=== PATIENT | female | born 1995 | race Caucasian/White ===

== ENCOUNTER 2023-08-07 09:34 | Inpatient (IN) | payer BC ==
[2023-08-07 09:47] VITALS: BMI 29.3
[2023-08-07] MEDS ORDERED: Misoprostol 200 MCG TAB PR PRN (10:00)
[2023-08-07] MEDS ORDERED: hydrALAZINE 20 MG/ML VIAL SLOW IVP PRN (10:00)
[2023-08-07] MEDS ORDERED: Lidocaine 1% (PF) 30 ML VIAL SC PRN (10:00)
[2023-08-07] MEDS ORDERED: Ibuprofen 800 MG TAB PO PRN (10:00)
[2023-08-07] MEDS ORDERED: fentaNYL 50 mcg/mL 1 mL Vial SLOW IVP PRN (10:00)
[2023-08-07] MEDS ORDERED: Promethazine HCl 25 MG/ML VIAL IM PRN (10:00)
[2023-08-07] MEDS ORDERED: Lactated Ringer's 1,000 ML IV PRN (10:00)
[2023-08-07] MEDS ORDERED: Oxytocin 30 units/NS 500 ML 500 ML IV SCH (10:00)
[2023-08-07] MEDS ORDERED: Ondansetron PF 4 MG/2 ML Vial IVP PRN (10:00)
[2023-08-07] MEDS ORDERED: HYDROcodone/Acetaminophen 5/325 mg Tablet PO PRN ×2 (10:00)
[2023-08-07 11:06] LABS: Hematocrit 37.5 % (34.9-44.5); Mean Corpuscular HGB CONC 34.7 g/dL (32.0-36.0); Mean Corpuscular Hemoglobin 27.3 pg (27.0-33.0); Mean Corpuscular Volume 78.6 fl (81.6-98.3); Mean Platelet Volume 14.4 fl (7.4-10.4); Platelet Count 190 10x3/uL (150-450); RBC Distribution Width 13.6 % (11.5-14.5); Red Blood Cell (RBC) Count 4.77 10x6/uL (3.90-5.03)
[2023-08-07 11:37] LABS: HBSAg Index 0.17 S/CO (0-0.99); Hep B Surf Ag - L&D Non-Reactive S/CO (NonReactive); Syphilis Antibody Nonreactive (Nonreactive); Syphilis Antibody Index 0.12 S/CO (<1.00 Non-Reactive)
[2023-08-07] MEDS ORDERED: fentaNYL/Ropivacaine Epidural 100 ML ONE (18:17)
[2023-08-07] MEDS ORDERED: Methylergonovine 0.2 MG/ML VIAL ONE (22:03)
[2023-08-07] MEDS ORDERED: Misoprostol 200 MCG TAB ONE (22:03)
[2023-08-08 02:12] LABS: Analyzer IN Cardio CS NICU; RapidComm Collect By CBN
[2023-08-08] MEDS ORDERED: Bisacodyl 10 MG SUPP PR PRN (04:26)
[2023-08-08] MEDS ORDERED: Benzocaine-Menthol 82.5 ML CAN TOP PRN (04:26)
[2023-08-08] MEDS ORDERED: Misoprostol 200 MCG TAB VAG PRN (04:26)
[2023-08-08] MEDS ORDERED: Boostrix 0.5 ML (Tdap) VIAL (>/=7 yrs of age) IM ONE (04:26)
[2023-08-08] MEDS ORDERED: Milk Of Magnesia 30 ML UDCUP PO PRN (04:26)
[2023-08-08] MEDS ORDERED: hydrALAZINE 20 MG/ML VIAL SLOW IVP PRN (04:26)
[2023-08-08] MEDS ORDERED: HYDROcodone/Acetaminophen 5/325 mg Tablet PO PRN ×2 (04:26)
[2023-08-08] MEDS ORDERED: Oxytocin 30 units/NS 500 ML 500 ML IV SCH (04:45)
[2023-08-08] MEDS: Ibuprofen 800 MG TAB PO SCH ×4 (05:13→21:46)
[2023-08-08 06:50] LABS: Analyzer IN Cardio CS NICU; RapidComm Collect By CBN; pH (Cord, venous) 7.362 (7.250-7.350)
[2023-08-08] MEDS: Ferrous Sulfate 325 MG TAB PO SCH ×2 (08:18→19:06)
[2023-08-08] MEDS: Prenatal Vitamin 1 TAB PO SCH (08:19)
[2023-08-08] MEDS: Docusate 100 MG CAP PO SCH ×2 (08:19→21:54)
[2023-08-09] MEDS: Ibuprofen 800 MG TAB PO SCH ×4 (05:26→21:39)
[2023-08-09] MEDS: Ferrous Sulfate 325 MG TAB PO SCH (07:13)
[2023-08-09] MEDS: Prenatal Vitamin 1 TAB PO SCH (10:24)
[2023-08-09] MEDS: Docusate 100 MG CAP PO SCH ×2 (10:24→21:37)
[2023-08-10] MEDS: Ibuprofen 800 MG TAB PO SCH (06:26)
[2023-08-10] MEDS: Ferrous Sulfate 325 MG TAB PO SCH (07:11)
[2023-08-10] MEDS: Prenatal Vitamin 1 TAB PO SCH (07:29)
[2023-08-10] MEDS: Docusate 100 MG CAP PO SCH (07:29)
[2023-08-10 08:10] VITALS: BP 114/71; TEMP 97.8
== END 2023-08-10 13:15 | disposition home or self-care (01) | DRG 807 ==
LOC: CSHLD/OP 09:34 → CSHLD 12:59 → CSHPP 08-08 03:50
PROVIDERS: ADMIT Obstetrics & Gynecology; ATTEND Obstetrics & Gynecology
PROC: 10H07YZ Insertion of Other Device into Products of Conception, Via Natural or Artificial Opening (ICD-10-PCS; 2023-08-07)
PROC: 10E0XZZ Delivery of Products of Conception, External Approach (ICD-10-PCS; principal; 2023-08-08)
PROC: 0HQ9XZZ Repair Perineum Skin, External Approach (ICD-10-PCS; 2023-08-08)
DX: O69.3XX0 Labor and delivery complicated by short cord, not applicable or unspecified (principal); Z37.0 Single live birth; O63.0 Prolonged first stage (of labor); O70.0 First degree perineal laceration during delivery; O77.0 Labor and delivery complicated by meconium in amniotic fluid; Z3A.40 40 weeks gestation of pregnancy; Z88.0 Allergy status to penicillin; Z91.018 Allergy to other foods
CPT/HCPCS: 82805; 85027; 86780; 86850; 86900; 86901; 87340; J2001; J2405; J2590